=== PATIENT | male | born 1980 | race Two or more races ===

== ENCOUNTER 2018-04-13 01:48 | Emergency (ER) | payer OTHER ==
[~2018-04-13] VITALS: Ht 180.3 cm; Wt 108.9 kg
[2018-04-13] MEDS ORDERED: KETO10TA2 PO (07:37)
== END 2018-04-13 07:43 | disposition home or self-care (01) ==
LOC: ER 01:48
DX: M25.552 Pain in left hip (principal)

== ENCOUNTER 2024-09-03 08:11 | Emergency (ER) | payer OTHER ==
[~2024-09-03] VITALS: Ht 180.3 cm; Wt 120.2 kg
[~2024-09-03 08:11] MED LIST: KETO10TA2 PO
[2024-09-03] MEDS ORDERED: ACETAMINOPHEN 325 MG TABLET PO ONE (08:45)
[2024-09-03 09:27] LABS: HEMATOCRIT 44.2 % (39.0-48.0); MEAN CELL VOLUME 81.5 fL (80.0-100.00); MEAN CORPUSCULAR HEMOGLOBIN 27.7 pg (27.00-32.0); MEAN CORPUSCULAR HGB CONC 33.9 g/dl (32.0-36.0); PLATELET COUNT 189 K/uL (150-450); RED BLOOD COUNT 5.42 M/uL (4.00-6.00); RED CELL DISTRIBUTION WIDTH 14.7 % (11.5-14.5)
[2024-09-03] MEDS ORDERED: BENZONATATE200 M1 PO (09:41)
[2024-09-03] MEDS ORDERED: OSEL75CA PO (09:41)
[2024-09-03] MEDS ORDERED: PEPCID AC20 MG PO (09:41)
== END 2024-09-03 10:12 | disposition home or self-care (01) ==
LOC: ER 08:11
PROVIDERS: General Practice
DX: R53.81 Other malaise (principal); J00 Acute nasopharyngitis [common cold]; Z20.822 Contact with and (suspected) exposure to COVID-19